=== PATIENT | female | born 1980 | race Two or more races ===

== ENCOUNTER 2016-12-15 07:50 | Emergency (ER) | payer OTHER ==
[2016-12-15 07:55] VITALS: TEMP 98.3; BMI 34.7
[2016-12-15] MEDS ORDERED: KETOROLAC TROMETHAMINE 30 MG/1 ML VIAL IVPUSH ONE (08:13)
[2016-12-15] MEDS ORDERED: KETOROLAC TROMETHAMINE 30 MG/1 ML VIAL ONE (08:16)
[2016-12-15 08:33] LABS: BASOPHIL 0.4 % (0-2.0); EOSINOPHIL 2.8 % (0-4.5); MCH 24.5 pg (25.7-33.7); MCHC 32.3 g/dl (32.0-36.0); MEAN CELL VOLUME 75.7 fl (80-96); MEAN PLT VOLUME 8.6 fl (7.5-11.1); NEUTROPHILS 56.6 % (42.8-82.8); PLATELET COUNT 202 K/MM3 (134-434); RDW 19.6 % (11.6-15.6); WHITE BLOOD COUNT 5.9 K/mm3 (4.0-10.0)
[2016-12-15 08:52] LABS: CALCIUM 8.3 mg/dL (8.5-10.1); COCKROFT - GAULT 151.1045; CREATININE 0.8 mg/dL (0.55-1.02)
--- NOTE | 2016-12-15 08:57 | PDOC ---
History of Present Illness - General Chief Complaint: Pain Stated Complaint: VAGINAL BLEEDING Time Seen by Provider: 12/15/16 08:04 History Source: Patient Exam Limitations: No Limitations - History of Present Illness Initial Comments: 12/15/16 08:57 CHIEF COMPLAINT: Vaginal bleeding HISTORY OF PRESENT ILLNESS: This is a 36 year old female with a history of NIDDM and uterine polyp surgery at [facility] in September of this year who presents complaining of pelvic pain and heavy vaginal bleeding (>10 pads per day ) for four days. V/s on arrival are notable for pulse of 91. chief drafter is Dr. Jeong. REVIEW OF SYSTEMS: GENERAL/CONSTITUTIONAL: No fever or chills. No weakness. No weight change. HEAD, EYES, EARS, NOSE AND THROAT: No change in vision. No ear pain or discharge. No sore throat. CARDIOVASCULAR: No chest pain or palpitations. RESPIRATORY: No cough, wheezing, or shortness of breath. GASTROINTESTINAL: No nausea, vomiting, diarrhea or constipation. GENITOURINARY: See HPI. MUSCULOSKELETAL: No joint or muscle swelling or pain. No neck or back pain. SKIN: No rash or easy bruising. NEUROLOGIC: No headache, vertigo, loss of consciousness, or loss of sensation. PSYCHIATRIC: No depression or anxiety. ENDOCRINE: No increased thirst. No abnormal weight change. HEMATOLOGIC/LYMPHATIC: No anemia, easy bleeding, or history of blood clots. ALLERGIC/IMMUNOLOGIC: No hives or skin allergy. No latex allergy. PHYSICAL EXAM: GENERAL: The patient is awake, alert, and fully oriented, in no acute distress. HEAD: Normal with no signs of trauma. ENT: Pupils equal, round and reactive to light, extraocular movements intact, sclera anicteric, conjunctiva clear. Neck supple. LUNGS: Clear to auscultation bilaterally. Normal excursion. No respiratory distress or use of accessory muscles. CV: RRR, S1/S2, no MRG. Cap refill < 2 sec. ABDOMEN: Soft, non-distended, non-tender. EXTREMITIES: Normal range of motion, no edema. NEUROLOGICAL: Normal speech, normal gait. CN II-XII grossly intact. PSYCH: Normal mood, normal affect. SKIN: Warm, dry, normal turgor, no rashes or lesions noted. GRAIN SHOVELER: Normal external exam. Moderate blood in vaginal vault. No CMT, bilateral adnexal tenderness L>R. Past History - Past Medical History Allergies/Adverse Reactions: Allergies Allergy/AdvReac Type Severity Reaction Status Date / Time No Known Allergies Allergy Verified 12/15/16 07:52 Home Medications: Ambulatory Orders Ibuprofen [Motrin -] 600 mg PO TID #90 tablet 07/21/16 Metformin HCl [Metformin HCl ER] 500 mg PO BID 07/21/16 Ibuprofen [Motrin -] 600 mg PO QID PRN #30 tablet 12/15/16 Diabetes: Yes - Reproductive History (#): 0 Para: 0 Therapeutic (s) & number: No Spontaneous : 0 - Immunization History Immunization Up to Date: Yes - Psycho/Social/Smoking Cessation Hx Anxiety: No Suicidal Ideation: No Smoking History: Never smoked Have you smoked in the past 12 months: No Information on smoking cessation initiated: No Hx Alcohol Use: No Drug/Substance Use Hx: No Substance Use Type: None *Physical Exam - Vital Signs Last Vital Signs Temp Pulse Resp BP Pulse Ox 98.3 F 91 H 18 120/92 100 12/15/16 07:53 12/15/16 07:53 12/15/16 07:53 12/15/16 07:53 12/15/16 07:53 ED Treatment Course - LABORATORY CBC & Chemistry Diagram: 12/15/16 08:20 12/15/16 08:20 - ADDITIONAL ORDERS Additional order review: Laboratory Results 12/15/16 12/15/16 08:20 08:20 Sodium 139 Potassium 4.5 Chloride 106 Carbon Dioxide 25 Anion Gap 8 BUN 14 D Creatinine 0.8 Random Glucose 128 H D Calcium 8.3 L Serum , Qual Negative 12/15/16 08:20 RBC 4.20 MCV 75.7 L MCHC 32.3 RDW 19.6 H MPV 8.6 Neutrophils % 56.6 Lymphocytes % 31.8 Monocytes % 8.4 Eosinophils % 2.8 Basophils % 0.4 - RADIOLOGY Radiology Studies Ordered: Category Date Time Status TRANSVAGINAL ULTRASOUND US [US] Stat Ultrasound 12/15/16 08:12 Ordered - Medications Given in the ED: ED Medications Discontinued Medications Generic Name Dose Route Start Last Admin Trade Name Freq PRN Reason Stop Dose Admin Ketorolac Tromethamine 30 mg 12/15/16 08:13 12/15/16 08:54 Toradol Injection - IVPUSH 12/15/16 08:14 30 mg ONCE ONE Administration Medical Decision Making - Medical Decision Making 12/15/16 09:22 A/P: 36 year old female with pelvic pain and dysfunctional uterine bleeding. 1. Labs including CBC, serum test 2. Transvaginal u/s 3. Toradol 30mg IVP for pain -Hgb 10.3, above baseline -Serum negative 12/15/16 10:[address] Dallas who suggests that I discuss the case with on-call ob/ unloader operator. Dr. Gallegos called. 12/15/16 10:[address] Gallegos- recommends outpatient followup. *DC/Admit/Observation/Transfer Diagnosis at time of Disposition: Dysfunctional uterine bleeding - Discharge Dispostion Admit: No - Prescriptions Prescriptions: Ibuprofen [Motrin -] 600 mg PO QID PRN #30 tablet PRN Reason: Pain - Referrals Referrals: Vishnu Dallas MD [Staff Physician] - - Patient Instructions Printed Discharge Instructions: DI for Vaginal Bleeding Additional Instructions: -Rest and stay well-hydrated -Take ibuprofen as prescribed for pain -Follow up with Dr. Dallas on Sunday - he is aware of your visit here -Return for dizziness/lightheadedness, soaking more than one pad per hour, or any other concerning symptoms - Post Discharge Activity Work/School Note: Back to Work
[2016-12-15 10:38] VITALS: BP 120/56; PULSE 83
== END 2016-12-15 10:38 | disposition home or self-care (01) ==
LOC: JER 07:50
PROC: 3E0333Z Introduction of Anti-inflammatory into Peripheral Vein, Percutaneous Approach (ICD-10-PCS; principal; 2016-12-15)
DX: N93.8 Other specified abnormal uterine and vaginal bleeding (principal); E11.9 Type 2 diabetes mellitus without complications; Z79.84 Long term (current) use of oral hypoglycemic drugs
CPT/HCPCS: 36415; 76830-TC; 80048; 84703; 85025; 96374; 99283-25

== ENCOUNTER 2016-12-30 23:09 | Emergency (ER) | payer OTHER ==
--- NOTE | 2016-12-30 23:56 | PDOC ---
History of Present Illness - General History Source: Patient, Old Records Exam Limitations: No Limitations - History of Present Illness Initial Comments: 12/31/16 00:33 The patient is a 36 year old female, with a significant past medical history of diabetes, who presents to the emergency department with vaginal bleeding and abdominal pain and vaginal bleeding for the past 3 months. She states that she had a uterine fibroid removed in late September 2016 and since has been having these symptoms. She describes her vaginal bleeding as a constant spotting. She describes her pain as a cramping sensation, ranging from mild to moderate, with radiation to the lower back, mostly localized on the left side. She denies any modifying factors. She reports that she has been taking Ibuprofen 800 mg with minimal relief of her symptoms. The patient was last in this ED on 12/08/16 for heavy vaginal bleeding and abdominal pain, at the time she got an ultrasound, which showed a slightly enlarged uterus, otherwise normal pelvic exam. She had since followed up with a physician at her OB/GYNs office who told her she may have Adenomyosis and prescribed control, which she has been compliant in taking. She states that the abdominal pain has exacerbated over the last couple of days, causing her to go to go to [facility], where she was given Morphine and blood work was performed. At the time her hemoglobin was at 7 but was not transfused. Instead was told to follow up with her ARTIST CONSULTANT, which she has an appointment to see in 2 days. She came today to the ED because the pain is worse and she is getting fatigued when she walk. The patient denies chest pain, shortness of breath, headache and dizziness. Denies fever, chills, nausea, vomit, diarrhea and constipation. Allergies: None Past surgical history: Uterine fibroid removal Social history: No alcoholm tobacco or drug use reported ARTIST CONSULTANT - Dr. Jeong <Albert Waggoner - Last Filed: 12/31/16 00:42> <De Perdue - Last Filed: 12/31/16 02:08> - General Stated Complaint: VAGINAL PAIN Time Seen by Provider: 12/30/16 23:32 Past History <Albert Waggoner - Last Filed: 12/31/16 00:42> - Past Medical History Diabetes: Yes - Reproductive History (#): 0 Para: 0 Therapeutic (s) & number: No Spontaneous : 0 - Immunization History Immunization Up to Date: Yes - Psycho/Social/Smoking Cessation Hx Anxiety: No Suicidal Ideation: No Smoking History: Never smoked Have you smoked in the past 12 months: No Hx Alcohol Use: No Drug/Substance Use Hx: No Substance Use Type: None <BrantzacharyDe - Last Filed: 12/31/16 02:08> - Past Medical History Allergies/Adverse Reactions: Allergies Allergy/AdvReac Type Severity Reaction Status Date / Time No Known Allergies Allergy Verified 12/31/16 00:14 Home Medications: Ambulatory Orders Metformin HCl [Metformin HCl ER] 500 mg PO BID 07/21/16 Ibuprofen [Motrin -] 600 mg PO QID PRN #30 tablet 12/15/16 Doxycycline Monohydrate [Monodox] 100 mg PO Q12H #20 capsule 12/31/16 Oxycodone HCl/Acetaminophen [Percocet 5-325 mg Tablet] 1 - 2 tab PO Q6H PRN #10 tab MDD 8 12/31/16 Review of Systems - Review of Systems Constitutional: No: Chills, Fever Respiratory: Yes: SOB with Exertion. No: Cough Cardiac (ROS): No: Chest Pain, Syncope ABD/GI: No: Diarrhea, Vomiting : Yes: See HPI All Other Systems: Reviewed and Negative <De Perdue - Last Filed: 12/31/16 02:08> *Physical Exam - Vital Signs Last Vital Signs Temp Pulse Resp BP Pulse Ox 98.4 F 89 17 123/86 98 12/31/16 00:11 12/31/16 00:11 12/31/16 00:11 12/31/16 00:11 12/31/16 00:11 - Physical Exam Comments: 12/31/16 00:34 GENERAL: The patient is awake, alert, and fully oriented, in no acute distress. HEAD: Normal with no signs of trauma. EYES: (+) Pale conjunctiva. Pupils equal, round and reactive to light, extraocular movements intact, sclera anicteric ENT: Ears normal, nares patent, oropharynx clear without exudates. Moist mucous membranes. NECK: Normal range of motion, supple without lymphadenopathy, JVD, or masses. LUNGS: Breath sounds equal, clear to auscultation bilaterally. No wheeze/ crackles. HEART: Regular rate and rhythm, normal S1 and S2 without murmur or rub. ABDOMEN: Soft/nontender/nondistended. BS wnl. No guarding or rebound. No palpable masses. No hepatosplenomegaly. EXTREMITIES: Normal range of motion, no edema. No clubbing or cyanosis. No cords , erythema, or tenderness. NEUROLOGICAL: Cranial nerves II through XII grossly intact. Normal speech, normal gait. PSYCH: Normal mood, normal affect. SKIN: Warm, Dry, normal turgor, no rashes or lesions noted. PELVIC EXAM: (+) CMT, no adnexal masses, increased discomfort on bilateral adnexal, no excessive bleeding <Albert Waggoner - Last Filed: 12/31/16 00:42> ED Treatment Course - LABORATORY CBC & Chemistry Diagram: 12/31/16 00:30 12/31/16 00:30 <Albert Waggoner - Last Filed: 12/31/16 00:42> - LABORATORY CBC & Chemistry Diagram: 12/31/16 00:30 12/31/16 00:30 <De Perdue - Last Filed: 12/31/16 02:08> Medical Decision Making - Medical Decision Making 12/31/16 00:36 A portion of this note was documented by scribe services under my direction. I have reviewed the details of the note, within reason, and agree with the documentation with the following case summary and management plan written by me. 36-year-old female with history of fibroids and possible recently diagnosed adenomyosis, status post myomectomy in September complicated by persistent pelvic pain and bleeding since then, presents again to the emergency department for persistent pelvic pain and bleeding. Patient was last seen here on 12/15 and was noted to have a hemoglobin of 10 and an ultrasound notable for fibroids but no other acute pathology. She saw her ARTIST CONSULTANT after that visit, was started on OCP for presumed adenomyosis but without benefit to her pain or bleeding. Over the last few days her pain has worsened, relieved only for one to 2 hours with high- dose ibuprofen, and so she presented to the [place] emergency department yesterday, was told her hemoglobin was 7 and was discharged on morphine. She presents now for continued complaints. Vital signs normal. Pale conjunctiva. Positive CMT on pelvic exam, no palpable adnexal masses, no active bleeding but there is clear/yellow discharge 36-year-old female with persistent pelvic pain and bleeding. Presentation does seem consistent with PID given her tenderness, question underlying adenomyosis explaining the persistent bleeding. Concerning that she reports a hemoglobin of 7 with associated symptoms of fatigue/dyspnea on exertion, no chest pain or syncope. Unlikely that she is . Check labs including urinalysis, GC/chlamydia cultures Will treat empirically for PID with ceftriaxone and azithromycin Recheck pelvic ultrasound Pain control, IV fluids Possible transfusion pending hemoglobin level Reassess 12/31/16 01:24 Hemoglobin 8.4, slightly below her baseline of 9 and her last level of 10.4. Remaining labs are within normal limits, including urinalysis. GC and chlamydia cultures sent, treated empirically with antibiotics. Currently at ultrasound, will follow up results and dispo accordingly. Would not proceed with transfusion given the hemoglobin level today and the chronicity of her anemia. 12/31/16 02:00 Ultrasound shows no acute pathology, no fibroids noted and ovaries are within normal limits with normal flow. Pain improved after Toradol, received antibiotics, agrees with discharge plan on antibiotics empirically for PID, will follow-up with her PATIENT CARE MANAGER, understands return criteria. <De Perdue - Last Filed: 12/31/16 02:08> *DC/Admit/Observation/Transfer - Attestations Scribe Attestion: 12/31/16 00:34 Documentation prepared by Albert Waggoner, acting as medical technologist microbiology for De Perdue MD <Albert Waggoner - Last Filed: 12/31/16 00:42> <De Perdue - Last Filed: 12/31/16 02:08> Diagnosis at time of Disposition: Dysfunctional uterine bleeding, Pelvic pain - Discharge Dispostion Disposition: HOME Condition at time of disposition: Improved - Prescriptions Prescriptions: Doxycycline Monohydrate [Monodox] 100 mg PO Q12H #20 capsule Oxycodone HCl/Acetaminophen [Percocet 5-325 mg Tablet] 1 - 2 tab PO Q6H PRN #10 tab MDD 8 PRN Reason: Pain - Referrals Referrals: Vishnu Dallas MD [Staff Physician] - - Patient Instructions Printed Discharge Instructions: DI for Pelvic Inflammatory Disease Additional Instructions: Activity as tolerated. Stay hydrated. Tylenol 1000 mg every 8 hours and/or ibuprofen 600 mg every 8 hours as needed for moderate pain, Percocet as prescribed as needed for severe pain. Blood tests, a urine test, and an ultrasound of the pelvis showed no acute abnormalities other than anemia. Because of your constant pain and based on your exam, we are treating you for a presumed pelvic infection. You were given two antibiotics in the ER, and should take Doxycycline as prescribed. The culture results will be available in 3-5 days. Continue your medications as previously prescribed by your physician. You should follow up with your PATIENT CARE MANAGER as soon as possible regarding today's emergency department visit. Return to the emergency department for any new or concerning symptoms, particularly persistent or intolerable pain, fever/chills, shortness of breath/ chest pain/passing out, heavy bleeding.
[2016-12-31 00:14] VITALS: BP 123/86; PULSE 89; TEMP 98.4; BMI 33.9
[2016-12-31] MEDS ORDERED: KETOROLAC TROMETHAMINE 30 MG/1 ML VIAL IVPUSH ONE (00:16)
[2016-12-31] MEDS ORDERED: AZITHROMYCIN 1 GM PACKET PO ONE (00:17)
[2016-12-31] MEDS ORDERED: SODIUM CHLORIDE 500 ML IV ONE (00:25)
[2016-12-31] MEDS ORDERED: AZITHROMYCIN 250 MG TABLET (FP) ONE (00:34)
[2016-12-31] MEDS ORDERED: KETOROLAC TROMETHAMINE 30 MG/1 ML VIAL ONE (00:34)
[2016-12-31] MEDS ORDERED: cefTRIAXone SODIUM 1 GM VIAL ONE (00:34)
[2016-12-31 00:42] LABS: BASOPHIL 0.2 % (0-2.0); EOSINOPHIL 3.8 % (0-4.5); MCH 22.8 pg (25.7-33.7); MCHC 30.9 g/dl (32.0-36.0); MEAN CELL VOLUME 73.9 fl (80-96); MEAN PLT VOLUME 8.1 fl (7.5-11.1); NEUTROPHILS 65.4 % (42.8-82.8); PLATELET COUNT 272 K/MM3 (134-434); RDW 19.1 % (11.6-15.6); WHITE BLOOD COUNT 8.2 K/mm3 (4.0-10.0)
[2016-12-31 00:56] LABS: URINE APPEARANCE CLEAR; URINE BILIRUBIN NEGATIVE (NEGATIVE); URINE COLOR STRAW; URINE GLUCOSE (UA) NEGATIVE (NEGATIVE); URINE KETONE NEGATIVE (NEGATIVE); URINE LEUK ESTERASE NEGATIVE (NEGATIVE); URINE NITRITE NEGATIVE (NEGATIVE); URINE PROTEIN NEGATIVE (NEGATIVE); URINE UROBILINOGEN NEGATIVE E.U./dl (0.2-1.0)
[2016-12-31 00:57] LABS: URINE BLOOD 2+ (NEGATIVE)
[2016-12-31 00:58] LABS: INR 1.01 (0.82-1.09); PROTHROMBIN TIME (PATIENT) 11.1 SEC (9.98-11.88); URINE RBC 2 /hpf (0-3); URINE WBC 1 /hpf (3-5)
[2016-12-31 01:07] LABS: ALBUMIN 3.5 g/dl (3.4-5.0); ANION GAP 9 (8-16); BILIRUBIN,TOTAL 0.5 mg/dL (0.2-1.0); CALCIUM 8.7 mg/dL (8.5-10.1); CO2 25 mmol/L (21-32); CREATININE 0.9 mg/dL (0.55-1.02); GLUCOSE,RANDOM 126 mg/dL (74-106); SGOT/AST 10 U/L (15-37); SGPT/ALT 17 U/L (12-78)
[2016-12-31 01:08] LABS: ALK PHOS 115 U/L (45-117); TOT PROT 7.5 g/dl (6.4-8.2)
[2016-12-31 09:58] LABS: ANISOCYTOSIS 1+; HYPOCHROMIA 2+; MICROCYTOSIS FEW; POLYCHROMASIA 1+; TEAR DROP CELLS 1+
== END 2016-12-31 02:16 | disposition home or self-care (01) ==
LOC: JER 23:09 → SUPCPDRO 23:09 → JER 12-31 02:16
PROC: 3E02329 Introduction of Other Anti-infective into Muscle, Percutaneous Approach (ICD-10-PCS; principal; 2016-12-30)
PROC: 3E0233Z Introduction of Anti-inflammatory into Muscle, Percutaneous Approach (ICD-10-PCS; 2016-12-30)
DX: R10.2 Pelvic and perineal pain (principal); N93.8 Other specified abnormal uterine and vaginal bleeding; Y83.8 Other surgical procedures as the cause of abnormal reaction of the patient, or of later complication, without mention of misadventure at the time of the procedure; Y76.8 Miscellaneous obstetric and gynecological devices associated with adverse incidents, not elsewhere classified
CPT/HCPCS: 36415; 76830-TC; 80053; 81003; 81015; 84703; 85025; 85610; 86850; 86900; 86901; 87491; 87591; 99281-25

== ENCOUNTER → 2017-01-07 | Emergency (ER) | payer OTHER ==
[2017-01-07 11:52] VITALS: BMI 33.9
[2017-01-07 13:04] LABS: MCH 22.8 pg (25.7-33.7); MCHC 30.9 g/dl (32.0-36.0); MEAN CELL VOLUME 73.9 fl (80-96); MEAN PLT VOLUME 8.2 fl (7.5-11.1); PLATELET COUNT 329 K/MM3 (134-434); RDW 20.2 % (11.6-15.6)
[2017-01-07 13:28] LABS: ALBUMIN 3.8 g/dl (3.4-5.0); ALK PHOS 129 U/L (45-117); ANION GAP 11 (8-16); BILIRUBIN,TOTAL 0.4 mg/dL (0.2-1.0); CALCIUM 9.9 mg/dL (8.5-10.1); CO2 22 mmol/L (21-32); CREATININE 0.9 mg/dL (0.55-1.02); GLUCOSE,RANDOM 127 mg/dL (74-106); SGOT/AST 101 U/L (15-37); SGPT/ALT 85 U/L (12-78); TOT PROT 8.1 g/dl (6.4-8.2)
[2017-01-07 13:30] LABS: INR 2.01 (0.82-1.09); PROTHROMBIN TIME (PATIENT) 22.4 SEC (9.98-11.88)
[2017-01-07 13:37] LABS: PLATELET ESTIMATE ADEQUATE (NORMAL)
[2017-01-07 13:38] LABS: ANISOCYTOSIS 1+; HYPOCHROMIA 1+
[2017-01-07 13:38] LABS: METHEMOGLOBIN 0.3 % (0.4-1.5)
[2017-01-07 13:39] LABS: ARTERIAL BLD GAS O2 SATURATION 96.7 % (90-98.9); ARTERIAL BLOOD GAS BASE EXCESS -2.3 meq/l (-2-2); ARTERIAL BLOOD GAS HCO3 20.4 meq/L (22-26); ARTERIAL BLOOD GAS PO2 79.7 mmHg (80-100); ARTERIAL BLOOD GAS pH 7.47 (7.35-7.45)
[2017-01-07 13:40] LABS: ALLENS TEST POSITIVE; ART PUNCT SITE RIGHT RADIAL; LPM/O2% 21%; PT. ON O2? NO; TYPE OF O2 R/A
--- NOTE | 2017-01-07 14:17 | PDOC ---
History of Present Illness - General History Source: Patient Exam Limitations: No Limitations - History of Present Illness Initial Comments: 01/07/17 14:40 The patient is a 36 year old female with a significant past medical history of diabetes, and anemia, recently diagnosed with PE at [facility] (on Xarelto) , brought by ambulance to the Emergency Department with shortness of breath. The patient reports that on 09/26 she had uterine fibroid removal and since has had vaginal spotting. She admits that she then was put back on an oral contraceptive to help the spotting, which caused a PE. As per records brought with the patient, she was diagnosed with a PE in [facility] on 01/02 and was admitted until 01/04. She admits that she is compliant with her Xarelto medication, but has not been taking her Metformin as she reports that her blood sugar has been low. She reports that she is currently feeling very weak, and fatigued, as well as short of breath, alleviated by lying down. She reports that the shortness of breath is not better or worse from when she was in the hospital for her PE. She also reports epigastric pain. She states that she started her menstrual cycle on Wednesday 01/03 which has been heavier than usual which she admits may be due to stopping the oral control and/or new medications. She admits that she had her first child 6 months ago. The patient is scheduled to see her Junior Administrative Assistant on Wednesday 01/10, and reports that her Junior Administrative Assistant states she may need a hysterectomy. She reports that while admitted at [facility] she had an ultrasound of the left leg but not the right. The patient denies dysuria, urinary frequency, and urgency. Patient denies nausea, vomiting, and diarrhea. Patient denies fever, cough, and chills. Patient denies neck pain, or back pain. Patient denies chest pain, palpitations , and diaphoresis. Junior Administrative Assistant: Dr. [facility] Hx: uterine fibroid removal <Corrie Noriega - Last Filed: 01/07/17 16:19> <Chad Broussard - Last Filed: 01/07/17 16:47> - General Chief Complaint: Shortness of Breath Stated Complaint: +P.E / SOB Time Seen by Provider: 01/07/17 12:06 Past History <Corrie Noriega - Last Filed: 01/07/17 16:19> - Past Medical History Cardiac Disorders: Yes (P.E) Diabetes: Yes Other medical history: LLE DVT - Reproductive History (#): 0 Para: 0 Therapeutic (s) & number: No Spontaneous : 0 - Immunization History Immunization Up to Date: Yes - Psycho/Social/Smoking Cessation Hx Anxiety: No Suicidal Ideation: No Smoking History: Never smoked Have you smoked in the past 12 months: No Information on smoking cessation initiated: No Hx Alcohol Use: No Drug/Substance Use Hx: No Substance Use Type: None <BoboChad - Last Filed: 01/07/17 16:47> - Past Medical History Allergies/Adverse Reactions: Allergies Allergy/AdvReac Type Severity Reaction Status Date / Time No Known Allergies Allergy Verified 01/07/17 11:45 Home Medications: Ambulatory Orders Metformin HCl 500 mg PO BID 01/07/17 Review of Systems - Review of Systems Able to Perform ROS?: Yes Comments:: 01/07/17 14:40 GENERAL/CONSTITUTIONAL: + weakness and fatigue. No fever or chills. HEAD, EYES, EARS, NOSE AND THROAT: No change in vision. No ear pain or discharge. No sore throat. CARDIOVASCULAR: No chest pain. RESPIRATORY: + shortness of breath. No cough, wheezing, or hemoptysis. GASTROINTESTINAL: + epigastric pain. No nausea, vomiting, diarrhea or constipation. GENITOURINARY: + vaginal bleeding. No dysuria, frequency, or change in urination. MUSCULOSKELETAL: No joint or muscle swelling or pain. No neck or back pain. SKIN: No rash NEUROLOGIC: No headache, vertigo, loss of consciousness, or change in strength/ sensation. ENDOCRINE: No increased thirst. No abnormal weight change. HEMATOLOGIC/LYMPHATIC: No anemia, easy bleeding, or history of blood clots. ALLERGIC/IMMUNOLOGIC: No hives or skin allergy. <Corrie Noriega - Last Filed: 01/07/17 16:19> *Physical Exam - Vital Signs Last Vital Signs Temp Pulse Resp BP Pulse Ox 98.0 F 108 H 24 119/80 98 01/07/17 11:48 01/07/17 13:07 01/07/17 13:07 01/07/17 13:07 01/07/17 13:20 - Physical Exam Comments: 01/07/17 14:42 GENERAL: Appears fatigued. Awake, alert, and fully oriented, in no acute distress HEAD: No signs of trauma EYES: Conjuctiva pale. PERRLA, EOMI, sclera anicteric ENT: Auricles normal inspection, hearing grossly normal, nares patent, oropharynx clear without exudates. Moist mucosa NECK: Normal ROM, supple, no lymphadenopathy, JVD, or masses LUNGS: Breath sounds equal, clear to auscultation bilaterally. No wheezes, and no crackles HEART: Regular rate and rhythm, normal S1 and S2, no murmurs, rubs or gallops ABDOMEN: Soft, nontender, normoactive bowel sounds. No guarding, no rebound. No masses EXTREMITIES: Normal range of motion, no edema. No clubbing or cyanosis. No cords, erythema, or tenderness NEUROLOGICAL: Cranial nerves II through XII grossly intact. Normal speech, normal gait SKIN: Warm, Dry, normal turgor, no rashes or lesions noted. PELVIC deferred. <Corrie Noriega - Last Filed: 01/07/17 16:19> - Vital Signs Last Vital Signs Temp Pulse Resp BP Pulse Ox 98.0 F 108 H 24 119/80 98 01/07/17 11:48 01/07/17 13:07 01/07/17 13:07 01/07/17 13:07 01/07/17 13:20 <Chad Broussard - Last Filed: 01/07/17 16:47> ED Treatment Course - LABORATORY CBC & Chemistry Diagram: 01/07/17 12:56 01/07/17 12:56 - ADDITIONAL ORDERS Additional order review: Laboratory Results 01/07/17 01/07/17 01/07/17 13:20 13:20 13:02 INR Puncture Site Right radial ABG pH 7.47 H ABG pCO2 at Pt Temp 28.6 L ABG pO2 at Pt Temp 79.7 L ABG HCO3 20.4 L ABG O2 Sat (Measured) 96.7 ABG O2 Content 11.7 L ABG Base Excess -2.3 L Lon Test Positive Carboxyhemoglobin 2.6 H Methemoglobin 0.3 L O2 Delivery Device R/a Oxygen Flow Rate 21% Sodium Potassium Chloride Carbon Dioxide Anion Gap BUN Creatinine Creat Clearance w eGFR Random Glucose Calcium Total Bilirubin AST ALT Alkaline Phosphatase Total Protein Albumin Serum , Qual Blood Type A POSITIVE Antibody Screen Negative 01/07/17 01/07/17 01/07/17 12:56 12:56 12:56 INR 2.01 H D Puncture Site ABG pH ABG pCO2 at Pt Temp ABG pO2 at Pt Temp ABG HCO3 ABG O2 Sat (Measured) ABG O2 Content ABG Base Excess Lon Test Carboxyhemoglobin Methemoglobin O2 Delivery Device Oxygen Flow Rate Sodium 137 Potassium 4.6 Chloride 104 Carbon Dioxide 22 Anion Gap 11 BUN 14 Creatinine 0.9 Creat Clearance w eGFR > 60 Random Glucose 127 H Calcium 9.9 Total Bilirubin 0.4 AST 101 H D ALT 85 H D Alkaline Phosphatase 129 H Total Protein 8.1 Albumin 3.8 Serum , Qual Negative Blood Type Antibody Screen 01/07/17 12:56 RBC 3.76 MCV 73.9 L MCHC 30.9 L RDW 20.2 H MPV 8.2 Neutrophils % 80.0 D Lymphocytes % 12.0 D Monocytes % 5.0 Eosinophils % 1.0 Basophils % 0.0 - RADIOLOGY Radiograph Interpretation: 01/07/17 14:55 Chest XRay As reviewed by Dr. Sourav Rosado IMPRESSION: No acute pathology. No significant change. 01/07/17 16:19 Bilateral Leg Ultrasound As reviewed by Dr. Josh Phelan IMPRESSION: No DVT is identified involving either leg. <Corrie Noriega - Last Filed: 01/07/17 16:19> - LABORATORY CBC & Chemistry Diagram: 01/07/17 12:56 01/07/17 12:56 - ADDITIONAL ORDERS Additional order review: Laboratory Results 01/07/17 01/07/17 01/07/17 13:20 13:20 12:56 INR Puncture Site Right radial ABG pH 7.47 H ABG pCO2 at Pt Temp 28.6 L ABG pO2 at Pt Temp 79.7 L ABG HCO3 20.4 L ABG O2 Sat (Measured) 96.7 ABG O2 Content 11.7 L ABG Base Excess -2.3 L Lon Test Positive Carboxyhemoglobin 2.6 H Methemoglobin 0.3 L O2 Delivery Device R/a Oxygen Flow Rate 21% Sodium 137 Potassium 4.6 Chloride 104 Carbon Dioxide 22 Anion Gap 11 BUN 14 Creatinine 0.9 Creat Clearance w eGFR > 60 Random Glucose 127 H Calcium 9.9 Total Bilirubin 0.4 AST 101 H D ALT 85 H D Alkaline Phosphatase 129 H Total Protein 8.1 Albumin 3.8 Serum , Qual 01/07/17 01/07/17 12:56 12:56 INR 2.01 H D Puncture Site ABG pH ABG pCO2 at Pt Temp ABG pO2 at Pt Temp ABG HCO3 ABG O2 Sat (Measured) ABG O2 Content ABG Base Excess Lon Test Carboxyhemoglobin Methemoglobin O2 Delivery Device Oxygen Flow Rate Sodium Potassium Chloride Carbon Dioxide Anion Gap BUN Creatinine Creat Clearance w eGFR Random Glucose Calcium Total Bilirubin AST ALT Alkaline Phosphatase Total Protein Albumin Serum , Qual Negative 01/07/17 12:56 RBC 3.76 MCV 73.9 L MCHC 30.9 L RDW 20.2 H MPV 8.2 Neutrophils % 80.0 D Lymphocytes % 12.0 D Monocytes % 5.0 Eosinophils % 1.0 Basophils % 0.0 - RADIOLOGY Radiology Studies Ordered: Category Date Time Status CXRPORT [CHEST X-RAY PORTABLE*] [RAD] Stat Radiology 01/07/17 12:36 Completed <Chad Broussard - Last Filed: 01/07/17 16:47> *DC/Admit/Observation/Transfer - Attestations Scribe Attestion: 01/07/17 14:44 Documentation prepared by Corrie Noriega, acting as manager medical for Chad Broussard DO. <Corrie Noriega - Last Filed: 01/07/17 16:19> - Discharge Dispostion Admit: No - Attestations Physician Attestion: 01/07/17 14:17 I, Dr. Chad Broussard, attest that this document has been prepared under my direction and personally reviewed by me in its entirety. I further attest, that it accurately reflects all work, treatment, procedures and medical decision -making performed by me. <Chad Broussard - Last Filed: 01/07/17 16:47> Diagnosis at time of Disposition: Dysfunctional uterine bleeding, Metrorrhagia Pulmonary embolism Qualifiers: Chronicity: unspecified Acute cor pulmonale presence: without acute cor pulmonale Uterine leiomyoma Qualifiers: Uterine leiomyoma location: unspecified location Qualified Code(s): D25.9 - Leiomyoma of uterus, unspecified - Discharge Dispostion Disposition: HOME Condition at time of disposition: Good - Patient Instructions Printed Discharge Instructions: DI for Pulmonary Embolism, Anemia: How Food and Vitamins Can Help Additional Instructions: Tanisha- See your ELASTIC ASSEMBLER about what the plan needs to be to stop the bleeding while you are on blood thinners. You do not have any blood clots in your legs. Your Blood Gas shows that you are getting plenty of oxygen in your blood. Continue all of your medicines. Return to us if there are any problems I hope this all resolves for you soon. [employer]- Dr. Chad Broussard
[2017-01-07 17:00] VITALS: TEMP 98.4
[2017-01-07 17:02] VITALS: BP 124/56; PULSE 100
--- NOTE | 2017-01-08 07:26 | EKG ---
Test Reason : Blood Pressure : / mmHG Vent. Rate : 101 BPM Atrial Rate : 101 BPM P-R Int : 132 ms QRS Dur : 070 ms QT Int : 332 ms P-R-T Axes : 051 049 044 degrees QTc Int : 430 ms SINUS TACHYCARDIA OTHERWISE NORMAL ECG NO PREVIOUS ECGS AVAILABLE Confirmed by SARA ANDREWS MD ([id number]) on 01/08/2017 7:26:17 AM Referred By: ROSHAN Confirmed By:SARA ANDREWS MD
== END | disposition home or self-care (01) ==
LOC: JER 11:44
DX: N92.1 Excessive and frequent menstruation with irregular cycle (principal); D25.9 Leiomyoma of uterus, unspecified; I26.99 Other pulmonary embolism without acute cor pulmonale; Z79.01 Long term (current) use of anticoagulants
CPT/HCPCS: 36415; 36600; 71010-TC; 80053; 81003; 82375; 82803; 83050; 84703; 85025; 85610; 86850; 86900; 86901; 93005; 93010; 93970-TC; 99285-25

== ENCOUNTER 2018-07-26 23:52 | Emergency (ER) | payer OTHER ==
[2018-07-27 00:43] VITALS: TEMP 98.2; BMI 34.2
[2018-07-27] MEDS ORDERED: ACETAMINOPHEN 325 MG TABLET (FP) PO ONE (00:56)
[2018-07-27 01:15] LABS: BASO % 0.4 % (0-2.0); EOS % 2.9 % (0-4.5); HEMATOCRIT 35.9 % (32.4-45.2); HEMOGLOBIN 11.9 GM/dL (10.7-15.3); LYMPH % 25.2 % (8-40); MCH 24.5 pg (25.7-33.7); MEAN CELL VOLUME 74.4 fl (80-96); MONO % 9.7 % (3.8-10.2); NEUT % 61.8 % (42.8-82.8); PLATELET COUNT 212 K/MM3 (134-434); RBC 4.83 M/mm3 (3.60-5.2)
--- NOTE | 2018-07-27 01:25 | PDOC ---
History of Present Illness - General Chief Complaint: Pain, Acute Stated Complaint: ABD PAIN Time Seen by Provider: 07/27/18 00:34 History Source: Patient Exam Limitations: Language Barrier Past History - Past Medical History Allergies/Adverse Reactions: Allergies Allergy/AdvReac Type Severity Reaction Status Date / Time No Known Allergies Allergy Verified 07/27/18 00:34 Home Medications: Ambulatory Orders metFORMIN HCL [Metformin HCl] 500 mg PO BID 01/07/17 Cardiac Disorders: Yes (P.E) Diabetes: Yes - Reproductive History (#): 0 Para: 0 Therapeutic (s) & number: No Spontaneous : 0 - Immunization History Immunization Up to Date: Yes - Suicide/Smoking/Psychosocial Hx Smoking History: Never smoked Have you smoked in the past 12 months: No Information on smoking cessation initiated: No Hx Alcohol Use: No Drug/Substance Use Hx: No Substance Use Type: None *Physical Exam - Vital Signs Last Vital Signs Temp Pulse Resp BP Pulse Ox 98.2 F 78 20 118/69 99 07/27/18 00:34 07/27/18 00:34 07/27/18 00:34 07/27/18 00:34 07/27/18 00:34 - Physical Exam General Appearance: No: Apparent Distress Respiratory/Chest: positive: Lungs Clear, Normal Breath Sounds. negative: Respiratory Distress Cardiovascular: positive: Regular Rhythm, Regular Rate, S1, S2. negative: Murmur Female Pelvic Exam: positive: discharge (clear whitish discharge, no foul odor) , adnexal tenderness (+R adnexal TTP), uterus. negative: CMT, vaginal bleeding Gastrointestinal/Abdominal: positive: Normal Bowel Sounds, Soft. negative: Tender, Distended, Guarding, Rebound Neurologic: positive: Fully Oriented, Alert, Normal Mood/Affect Moderate Sedation - Procedure Monitoring Vital Signs: Procedure Monitoring Vital Signs Temperature 98.2 F 07/27/18 00:34 Pulse Rate 78 07/27/18 00:34 Respiratory Rate 20 07/27/18 00:34 Blood Pressure 118/69 07/27/18 00:34 O2 Sat by Pulse Oximetry (%) 99 07/27/18 00:34 ED Treatment Course - LABORATORY CBC & Chemistry Diagram: 07/27/18 01:04 07/27/18 01:04 - RADIOLOGY Radiology Studies Ordered: Category Date Time Status TRANSVAGINAL US PREG [US] Stat Ultrasound 07/27/18 00:56 Ordered Medical Decision Making - Medical Decision Making 37 y/o F hx of DM, anemia, PE (on Eliquis), endometriosis presents with pelvic cramping x 5 days. Saw her PCP for this pain 5 days ago who did urine test which was negative and did ultrasound with concern for "inflamed ovary"; he prescribed her Hyoscyamine and Ciprofloxacin 500 BID, which she states has not been helping. Mentions having urinary urgency. Has been sexually active with only 1 partner; denies hx of STDs. Has been taking Tylenol with minimal relief of pain. LNMP 04/01 (has irregular periods) Denies fever, chills, sob, cp, n/v/d , vaginal bleeding, unusual vaginal discharge, dysuria. Consider UTI, R ovarian cyst; less suspicious for ovarian torsion or abscess Plan: CBC, BMP, UCG, UA, UCx, pelvic ultrasound 07/27/18 01:18 Labs reviewed and unremarkable Pelvic ultrasound: 5.5 x 5.0 x 4.0 cm complex left ovarian cyst, probably hemorrhagic, advise followup ultrasound in 6 or 10 weeks to assess for resolution. No ovarian torsion. Color flow with appropriate arterial and venous waveforms. No free fluid. 2.3 cm fibroid in uterus. Endometrial stripe complex 19 mm thick. Unremarkable visualized portion of bladder Findings d/w Dr. Clarke - concerned about ovarian torsion Patient currently resting in NAD [facility] advised patient f/u with SOCIAL WORK PROFESSOR tomorrow or at [facility] for further care; states it could be endometrioma vs hemorrhagic cyst D/W Dr. Clarke - recommend transfer to [facility] for further eval Spoke to OB Dr. Guidry at [facility]; patient accepted for ER to ER transfer 07/27/18 04:28 *DC/Admit/Observation/Transfer Diagnosis at time of Disposition: Hemorrhagic cyst of left ovary - Discharge Dispostion Disposition: TRANSFER ACUTE CARE/OTHER HOSP Condition at time of disposition: Stable Decision to Admit order: No - Referrals - Patient Instructions - Post Discharge Activity - Transfer to Acute Care Facility Receiving Facility: [facility]. Accepting Physician:: Dr. Guidry
[2018-07-27 01:45] LABS: ANION GAP 6 MMOL/L (8-16); BLOOD UREA NITROGEN 10 mg/dL (7-18); CALCIUM 8.9 mg/dL (8.5-10.1); CHLORIDE 106 mmol/L (98-107); CO2 25 mmol/L (21-32); CREATININE 0.7 mg/dL (0.55-1.3); GLUCOSE,RANDOM 127 mg/dL (74-106); SODIUM 137 mmol/L (136-145)
[2018-07-27] MEDS ORDERED: ACETAMINOPHEN 325 MG TABLET (FP) ONE (01:48)
[2018-07-27 03:17] LABS: URINE APPEARANCE CLOUDY; URINE BILIRUBIN NEGATIVE (<2.0 mg/dL); URINE COLOR YELLOW; URINE GLUCOSE (UA) NEGATIVE (NEGATIVE); URINE KETONE NEGATIVE (NEGATIVE); URINE LEUK ESTERASE 1+ (NEGATIVE); URINE NITRITE NEGATIVE (NEGATIVE); URINE PROTEIN NEGATIVE (NEGATIVE); URINE UROBILINOGEN NEGATIVE mg/dL (0.2-1.0)
[2018-07-27 03:22] LABS: EPI CELLS MODERATE /HPF (FEW); URINE MUCUS RARE
[2018-07-27 05:15] VITALS: BP 117/68; PULSE 70
== END 2018-07-27 05:24 | disposition short-term general hospital (02) ==
LOC: JER 23:52
DX: N83.202 Unspecified ovarian cyst, left side (principal); Z79.01 Long term (current) use of anticoagulants
CPT/HCPCS: 36415; 76830-TC; 80048; 81003; 81015; 84703; 85025; 87086; 87491; 87591; 99282-25

== ENCOUNTER 2019-03-05 16:48 | Emergency (ER) | payer OTHER ==
[2019-03-05 16:57] VITALS: TEMP 98.3; BMI 34.2
[2019-03-05] MEDS ORDERED: SODIUM CHLORIDE 0.9% 500 ML INFUS.BAG IV ONE (16:57)
[2019-03-05] MEDS ORDERED: KETOROLAC TROMETHAMINE 30 MG/1 ML VIAL IM ONE (16:57)
--- NOTE | 2019-03-05 16:57 | PDOC ---
Rapid Medical Evaluation Time Seen by Provider: 03/05/19 16:53 Medical Evaluation: Allergies Allergy/AdvReac Type Severity Reaction Status Date / Time No Known Allergies Allergy Verified 07/27/18 00:34 03/05/19 16:53 This patient had a brief in-person evaluation in triage CC: left flank pain since that radiates down left leg Patient reports being seen at another hospital for the same last week given antibiotics with no relief of symptoms PE: NAD unlabored breathing + left cva tenderness orders:urine, labs, iv saline, This patient will proceed to the ED for further evaluation Discharge Disposition - Diagnosis Left flank pain - Referrals - Patient Instructions - Post Discharge Activity
--- NOTE | 2019-03-05 19:33 | PDOC ---
History of Present Illness - General Chief Complaint: Pain, Acute Stated Complaint: LOWER/FLANK PAIN, URINARY Time Seen by Provider: 03/05/19 16:53 Past History - Past Medical History Allergies/Adverse Reactions: Allergies Allergy/AdvReac Type Severity Reaction Status Date / Time No Known Allergies Allergy Verified 03/05/19 16:57 Home Medications: Ambulatory Orders metFORMIN HCL [Metformin HCl] 500 mg PO BID 01/07/17 Cardiac Disorders: Yes (P.E ON ELIQUIS) COPD: No Diabetes: Yes Kidney Stones: (KIDNEY INFECTION) - Reproductive History (#): 0 Para: 0 Therapeutic (s) & number: No Spontaneous : 0 - Immunization History Immunization Up to Date: Yes - Suicide/Smoking/Psychosocial Hx Smoking History: Never smoked Have you smoked in the past 12 months: No Information on smoking cessation initiated: No Hx Alcohol Use: No Drug/Substance Use Hx: No Substance Use Type: None *Physical Exam - Vital Signs Last Vital Signs Temp Pulse Resp BP Pulse Ox 98.3 F 85 19 131/66 100 03/05/19 16:55 03/05/19 16:55 03/05/19 16:55 03/05/19 16:55 03/05/19 16:55 Medical Decision Making - Medical Decision Making 38yo F 03/05/19 19:33 *DC/Admit/Observation/Transfer Diagnosis at time of Disposition: Left flank pain - Referrals - Patient Instructions - Post Discharge Activity
--- NOTE | 2019-03-05 19:52 | PDOC ---
History of Present Illness - General Chief Complaint: Pain, Acute Stated Complaint: LOWER/FLANK PAIN, URINARY Time Seen by Provider: 03/05/19 16:53 History Source: Patient Exam Limitations: No Limitations - History of Present Illness Initial Comments: 03/05/19 19:49 38 yo female pmh DM, anemia, PE (on Eliquis), endometriosis presents to the ED for 5 days of lower back pain. Pt states the pain started suddenly without related trauma, never had this pain before, pain is lower back, described as cramping with radiation down the left leg with associated numbness/tingling. Pt went to Urgent Care Sunday, given antibiotics for likely UTI (finished course, does not know name) and has been taking Tylenol for pain without relief. Pt admits to feelings of not finishing voiding after urination, denies incontinence , burning, pain or blood with urination, denies saddle anesthesia, abdominal pain, F/C/N/V, CP, SOB, CANNON, vaginal complaints or changes in bowel or bladder habits Past History - Past Medical History Allergies/Adverse Reactions: Allergies Allergy/AdvReac Type Severity Reaction Status Date / Time No Known Allergies Allergy Verified 03/05/19 16:57 Home Medications: Ambulatory Orders metFORMIN HCL [Metformin HCl] 500 mg PO BID 01/07/17 Apixaban [Eliquis -] 2.5 mg PO BID 03/06/19 Cardiac Disorders: Yes (P.E ON ELIQUIS) COPD: No Diabetes: Yes Kidney Stones: (KIDNEY INFECTION) - Reproductive History (#): 0 Para: 0 Therapeutic (s) & number: No Spontaneous : 0 - Immunization History Immunization Up to Date: Yes - Suicide/Smoking/Psychosocial Hx Smoking History: Never smoked Have you smoked in the past 12 months: No Information on smoking cessation initiated: No Hx Alcohol Use: No Drug/Substance Use Hx: No Substance Use Type: None *Physical Exam - Vital Signs Last Vital Signs Temp Pulse Resp BP Pulse Ox 98.3 F 85 19 131/66 100 03/05/19 16:55 03/05/19 16:55 03/05/19 16:55 03/05/19 16:55 03/05/19 16:55 ED Treatment Course - LABORATORY CBC & Chemistry Diagram: 03/06/19 01:00 03/06/19 01:15 Medical Decision Making - Medical Decision Making 03/05/19 19:59 38 yo female pmh DM, anemia, PE (on Eliquis), endometriosis presents to the ED for 5 days of lower back pain. Pt states the pain started suddenly without related trauma, never had this pain before, pain is lower back, described as cramping with radiation down the left leg with associated numbness/tingling. Pt went to Urgent Care Sunday, given antibiotics for likely UTI (finished course, does not know name) and has been taking Tylenol for pain without relief. Pt admits to feelings of not finishing voiding after urination, denies incontinence , burning, pain or blood with urination, denies saddle anesthesia, abdominal pain, F/C/N/V, CP, SOB, CANNON, vaginal complaints or changes in bowel or bladder habits vitals wnl Pt well appearing, ambulates without difficulty in the ED Neg straight leg raise UA and U culture sent 03/06/19 02:26 APCT no acute findings US shows some free fluid and likely hemorrhagic cyst pelvic exam shows closed OS, no adnexal tenderness or CMT Pt pain likely from ruptured cyst, treat with NSAIDs and dispo to gyn *DC/Admit/Observation/Transfer Diagnosis at time of Disposition: Left flank pain, Ovarian cyst rupture - Discharge Dispostion Disposition: HOME Condition at time of disposition: Stable Decision to Admit order: No - Referrals Referrals: Sunni Oseguera MD [Staff Physician] - - Patient Instructions Printed Discharge Instructions: [facility] Additional Instructions: Please see your Primary Doctor within the next 48 hours and see your DIRECTOR OF IT OPERATIONS doctor as soon as possible. You likely had an ovarian cyst which suptured and caused your pain. Take over the counter NSAID medication for pain relief. Return to the ER for new or concerning symptoms including but not limited to: abdominal pain, high fevers, vaginal discharge, inability to eat or drink. Thank you Print Language: SAO TOMEAN - Post Discharge Activity Forms/Work/School Notes: Back to Work
[2019-03-05] MEDS ORDERED: KETOROLAC TROMETHAMINE 30 MG/1 ML VIAL ONE (20:33)
[2019-03-05 21:10] LABS: PH,URINE 6.5 (5.0-8.0); URINE APPEARANCE CLEAR; URINE BILIRUBIN NEGATIVE (NEGATIVE); URINE COLOR YELLOW; URINE GLUCOSE (UA) 3+ (NEGATIVE); URINE KETONE NEGATIVE (NEGATIVE); URINE LEUK ESTERASE NEGATIVE (NEGATIVE); URINE NITRITE NEGATIVE (NEGATIVE); URINE PROTEIN NEGATIVE (NEGATIVE); URINE UROBILINOGEN 0.2 mg/dL (0.2-1.0)
--- NOTE | 2019-03-05 22:12 | PDOC ---
Documentation entered by Marta Navarrete SCRIBE, acting as scribe for Rochelle Farooq DO. Rochelle Farooq DO: This documentation has been prepared by the jeff, Marta Navarrete SCRIBE, under my direction and personally reviewed by me in its entirety. I confirm that the documentation accurately reflects all work , treatment, procedures, and medical decision making performed by me. Attending Attestation - Resident Resident Name: Morteza Campos - ED Attending Attestation I have performed the following: I have examined & evaluated the patient, The case was reviewed & discussed with the resident, I agree w/resident's findings & plan, Exceptions are as noted - HPI HPI: 03/05/19 20:30 The patient is a 38-year-old female, with a past medical history of DM, anemia, PE (on Eliquis), and endometriosis, who presents to the ED with 5 days of lower back pain with radiation down the left leg. Patient has been taking Tylenol for pain with minimal relief of her symptoms. The patient went to an urgent care on Sunday03/03/19 and received Hyoscyamine and Ciprofloxacin 500 BID for treatment of a UTI. The antibiotics have not helped ease the pain. She denies any recent trauma, incontinence, or any changes in sensation. She denies any dysuria, frequency, hesitancy, or hematuria, but reports urgency. She denies any fevers, chills, nausea, vomiting, diarrhea, or abdominal pain. Denies any chest pain, palpitations, or shortness of breath. Allergies: NKA - Physicial Exam PE: 03/05/19 20:31 Agree with resident exam. - Medical Decision Making 03/05/19 22:09 38-year-old female with bilateral low back pain On reexam patient now exhibits abdominal tenderness CT abdomen and pelvis, renal protocol as well as pelvic ultrasound planned Labs/urinalysis Disposition pending results
[2019-03-06 01:10] LABS: BASO % 0.6 % (0-2.0); EOS % 3.1 % (0-4.5); HEMATOCRIT 33.4 % (32.4-45.2); HEMOGLOBIN 10.7 GM/dL (10.7-15.3); LYMPH % 29.4 % (8-40); MCH 26.1 pg (25.7-33.7); MEAN CELL VOLUME 81.4 fl (80-96); MEAN PLT VOLUME 9.4 fl (7.5-11.1); MONO % 9.5 % (3.8-10.2); NEUT % 57.4 % (42.8-82.8); PLATELET COUNT 212 K/MM3 (134-434); RBC 4.11 M/mm3 (3.60-5.2); RDW 17.8 % (11.6-15.6); WHITE BLOOD COUNT 6.2 K/mm3 (4.0-10.0)
[2019-03-06 01:38] LABS: ALBUMIN 3.3 g/dl (3.4-5.0); BILIRUBIN,TOTAL 0.3 mg/dL (0.2-1); BLOOD UREA NITROGEN 10.8 mg/dL (7-18); CALCIUM 8.8 mg/dL (8.5-10.1); CREATININE 0.8 mg/dL (0.55-1.3); POTASSIUM 4.2 mmol/L (3.5-5.1); TOT PROT 6.7 g/dl (6.4-8.2)
[2019-03-06 02:43] VITALS: BP 133/72; PULSE 88
[2019-03-06] MEDS ORDERED: LIDOCAINE 5% TOPICAL PATCH TP ONE (03:09)
[2019-03-06] MEDS ORDERED: LIDOCAINE 5% TOPICAL PATCH ONE (03:13)
[2019-03-06] MEDS ORDERED: LIDOCAINE PATCH REMOVAL MC SCH (22:00)
== END 2019-03-06 03:22 | disposition home or self-care (01) ==
LOC: JER 16:48
PROC: 3E0233Z Introduction of Anti-inflammatory into Muscle, Percutaneous Approach (ICD-10-PCS; principal; 2019-03-05)
DX: R10.32 Left lower quadrant pain (principal); N83.209 Unspecified ovarian cyst, unspecified side; Z86.711 Personal history of pulmonary embolism; Z79.01 Long term (current) use of anticoagulants; E11.9 Type 2 diabetes mellitus without complications
CPT/HCPCS: 36415; 74176-TC; 76830-TC; 80053; 81003; 82962; 84703; 85025; 87086; 99283-25

== ENCOUNTER 2022-03-04 15:27 | Emergency (ER) | payer OTHER ==
[2022-03-04 15:46] VITALS: BP 122/75; PULSE 77; RESP 20; TEMP 98.2; BMI 30.9
== END 2022-03-04 16:00 | disposition left against medical advice (07) ==
LOC: JER 15:27
DX: M54.50 Low back pain, unspecified (principal); M54.2 Cervicalgia
CPT/HCPCS: 93005; 93010; 99281-25

== ENCOUNTER 2023-03-29 08:14 | Emergency (ER) | payer OTHER ==
[2023-03-29 08:21] VITALS: TEMP 97.5; BMI 33.9
[2023-03-29] MEDS ORDERED: KETOROLAC TROMETHAMINE 30 MG/1 ML VIAL IM ONE (09:09)
[2023-03-29] MEDS ORDERED: METHOCARBAMOL 500 MG TABLET PO ONE (09:10)
[2023-03-29] MEDS ORDERED: DEXAMETHASONE SOD PHOSPHATE 10 MG/1 ML VIAL IM ONE (09:10)
[2023-03-29] MEDS ORDERED: DEXAMETHASONE SOD PHOSPHATE 10 MG/1 ML VIAL ONE (09:12)
[2023-03-29] MEDS ORDERED: METHOCARBAMOL 500 MG TABLET ONE (09:12)
[2023-03-29] MEDS ORDERED: KETOROLAC TROMETHAMINE 60 MG/2 ML VIAL ONE (09:13)
[2023-03-29 11:58] LABS: BASO % 0.3 % (0-2.0); EOS % 1.9 % (0-4.5); HEMATOCRIT 39.5 % (32.4-45.2); HEMOGLOBIN 12.9 GM/dL (10.7-15.3); LYMPH % 20.3 % (8-40); MCH 27.6 pg (25.7-33.7); MCHC 32.7 g/dl (32.0-36.0); MEAN CELL VOLUME 84.5 fl (80-96); MEAN PLT VOLUME 9.1 fl (7.5-11.1); MONO % 4.9 % (3.8-10.2); NEUT % 72.6 % (42.8-82.8); PLATELET COUNT 207 10^3/uL (134-434); RBC 4.67 M/mm3 (3.60-5.2); RDW 13.5 % (11.6-15.6); WHITE BLOOD COUNT 6.2 K/mm3 (4.0-10.0)
[2023-03-29 12:21] LABS: POTASSIUM 4.5 mmol/L (3.5-5.1)
[2023-03-29 12:24] LABS: CALCIUM 9.4 mg/dL (8.5-10.1)
[2023-03-29 12:25] LABS: ALBUMIN 3.8 g/dl (3.4-5.0); BLOOD UREA NITROGEN 11.5 mg/dL (7-18)
[2023-03-29 12:28] LABS: CREATININE 0.8 mg/dL (0.55-1.3)
[2023-03-29 12:29] LABS: BILIRUBIN,TOTAL 0.4 mg/dL (0.2-1); TOT PROT 7.5 g/dl (6.4-8.2)
[2023-03-29 14:19] VITALS: BP 140/80; PULSE 93; RESP 18
== END 2023-03-29 14:21 | disposition short-term general hospital (02) ==
LOC: JERFT 08:14 → JER 08:14
PROC: 3E0233Z Introduction of Anti-inflammatory into Muscle, Percutaneous Approach (ICD-10-PCS; principal; 2023-03-29)
PROC: 3E023GC Introduction of Other Therapeutic Substance into Muscle, Percutaneous Approach (ICD-10-PCS; 2023-03-29)
DX: M79.652 Pain in left thigh (principal); M89.8X8 Other specified disorders of bone, other site
CPT/HCPCS: 36415; 73502-TC-LT-FY; 73552-TC-LT-FY; 73700-TC-RT; 80053; 85025; 99285-25; J1100

== ENCOUNTER 2024-06-03 15:15 | Emergency (ER) | payer OTHER ==
[2024-06-03 16:37] VITALS: BP 111/71; PULSE 92; RESP 20; TEMP 97.8; BMI 33.9
[2024-06-03 17:41] LABS: BASO % 0.1 % (0-2.0); EOS % 3.1 % (0-4.5); HEMATOCRIT 36.1 % (32.4-45.2); HEMOGLOBIN 11.9 GM/dL (10.7-15.3); LYMPH % 30.9 % (8-40); MCH 27.9 pg (25.7-33.7); MCHC 32.9 g/dl (32.0-36.0); MEAN CELL VOLUME 84.9 fl (80-96); MEAN PLT VOLUME 8.1 fl (7.5-11.1); MONO % 14.4 % (3.8-10.2); NEUT % 51.5 % (42.8-82.8); PLATELET COUNT 188 10^3/uL (134-434); RBC 4.25 M/mm3 (3.60-5.2); RDW 13.8 % (11.6-15.6); WHITE BLOOD COUNT 7.3 K/mm3 (4.0-10.0)
[2024-06-03 18:04] LABS: POTASSIUM 3.7 mmol/L (3.5-5.1)
[2024-06-03 18:06] LABS: CALCIUM 9.4 mg/dL (8.5-10.1)
[2024-06-03 18:07] LABS: ALBUMIN 3.6 g/dl (3.4-5.0); BLOOD UREA NITROGEN 9.6 mg/dL (7-18)
[2024-06-03 18:10] LABS: CREATININE 0.8 mg/dL (0.55-1.3)
[2024-06-03 18:11] LABS: BILIRUBIN,TOTAL 0.6 mg/dL (0.2-1); TOT PROT 6.8 g/dl (6.4-8.2)
== END 2024-06-03 23:06 | disposition home or self-care (01) ==
LOC: JER 15:15
DX: R11.2 Nausea with vomiting, unspecified (principal); R19.7 Diarrhea, unspecified; R10.13 Epigastric pain; R10.32 Left lower quadrant pain
CPT/HCPCS: 36415; 74177-TC; 80053; 83690; 84703; 85025; 99285-25; Q9967

== ENCOUNTER 2024-11-14 22:21 | Observation (INO) | payer OTHER ==
[2024-11-14] MEDS ORDERED: ACETAMINOPHEN 325 MG TABLET (FP) ONE (23:20)
[2024-11-14] MEDS ORDERED: FAMOTIDINE 20 MG/50 ML IVPB 20 MG/50 ML MG IVPB ONE (23:20)
[2024-11-14] MEDS: FAMOTIDINE 20 MG/50 ML IVPB 20 MG/50 ML MG IVPB ONE (23:38)
[2024-11-14] MEDS: ACETAMINOPHEN 325 MG TABLET (FP) PO ONE (23:38)
[2024-11-14 23:47] LABS: ABSOLUTE IMMATURE GRANULOCYTES 0.02 x10^3/uL (0.0-0.031); BASOPHILS # 0.03 x10^3/uL (0.01-0.08); EOSINOPHIL % 2.7 % (0.7-5.8); EOSINOPHILS # 0.18 x10^3/uL (0.04-0.36); HEMATOCRIT 38.8 % (34.1-44.9); HEMOGLOBIN 12.4 g/dL (11.2-15.7); MEAN CELL VOLUME 85.3 fl (79.4-94.8); MEAN PLT VOLUME 10.9 fl (9.4-12.3); MONOCYTE # 0.69 x10^3/uL (0.24-0.86); MONOCYTE % 10.4 % (4.7-12.5); PLATELET COUNT 222 x10^3/uL (182-369)
[2024-11-14 23:54] LABS: INR 1.16 (0.83-1.09); PROTHROMBIN TIME (PATIENT) 12.6 SEC (9.7-13.0)
[2024-11-14 23:57] LABS: ACTIVATED PTT 33.7 SECONDS (25.2-36.5)
[2024-11-15 00:10] LABS: ALBUMIN 3.7 g/dl (3.4-5.0); BLOOD UREA NITROGEN 12.1 mg/dL (7-18); CALCIUM 10.5 mg/dL (8.5-10.1); MAGNESIUM 1.8 mg/dL (1.8-2.4)
[2024-11-15 00:13] LABS: CREATININE 0.8 mg/dL (0.55-1.3)
[2024-11-15 00:14] LABS: BILIRUBIN,TOTAL 0.3 mg/dL (0.2-1); TOT PROT 7.5 g/dl (6.4-8.2)
[2024-11-15] MEDS ORDERED: MORPHINE SULFATE 2 MG/ML SYRINGE IVPUSH PRN (01:41)
[2024-11-15] MEDS: ATORVASTATIN CA 40 MG TABLET (FP) PO ONE (02:15)
[2024-11-15] MEDS: NITROGLYCERIN SUBLINGUAL 1/150 0.4 MG TAB SL PRN (04:10)
[2024-11-15] MEDS: ACETAMINOPHEN 325 MG TABLET (FP) PO ONE (04:49)
[2024-11-15 05:54] VITALS: BMI 32.8
[2024-11-15] MEDS ORDERED: HEPARIN NA (PORCINE) 5,000 UNITS/ML 1ML VIAL SQ SCH (06:00)
[2024-11-15] MEDS: INSULIN ASPART SLIDING SCALE (NOVOLOG) 1 VIAL SQ SCH ×2 (06:48→10:59)
[2024-11-15] MEDS: APIXABAN 2.5 MG TABLET PO SCH (09:52)
[2024-11-15] MEDS: ASPIRIN COATED 81 MG TABLET.EC PO SCH (09:52)
[2024-11-15] MEDS: SODIUM CHLORIDE 1,000 ML IV SCH (09:53)
[2024-11-15] MEDS: ACETAMINOPHEN 325 MG TABLET (FP) PO PRN (10:34)
[2024-11-15] MEDS: FAMOTIDINE 20 MG TABLET PO SCH (11:26)
[2024-11-15] MEDS: APIXABAN 5 MG TABLET PO SCH (21:22)
[2024-11-16 09:28] LABS: HEMATOCRIT 38.9 % (34.1-44.9); HEMOGLOBIN 12.5 g/dL (11.2-15.7); MCHC 32.1 g/dl (32.2-35.5); MEAN CELL VOLUME 84.7 fl (79.4-94.8); MEAN PLT VOLUME 12.4 fl (9.4-12.3); PLATELET COUNT 198 x10^3/uL (182-369); RDW 13.2 % (12.2-17.1)
[2024-11-16 09:29] LABS: ABSOLUTE IMMATURE GRANULOCYTES 0.01 x10^3/uL (0.0-0.031); BASOPHILS # 0.01 x10^3/uL (0.01-0.08); EOSINOPHIL % 3.5 % (0.7-5.8); EOSINOPHILS # 0.19 x10^3/uL (0.04-0.36); HEMATOCRIT 38.3 % (34.1-44.9); HEMOGLOBIN 12.4 g/dL (11.2-15.7); MCHC 32.4 g/dl (32.2-35.5); MEAN CELL VOLUME 84.5 fl (79.4-94.8); MEAN PLT VOLUME 12.3 fl (9.4-12.3); MONOCYTE # 0.58 x10^3/uL (0.24-0.86); MONOCYTE % 10.7 % (4.7-12.5); PLATELET COUNT 194 x10^3/uL (182-369); RDW 13.1 % (12.2-17.1)
[2024-11-16 09:58] LABS: ALBUMIN 3.7 g/dl (3.4-5.0); BLOOD UREA NITROGEN 9.4 mg/dL (7-18); CALCIUM 9.7 mg/dL (8.5-10.1)
[2024-11-16 09:59] LABS: MAGNESIUM 1.9 mg/dL (1.8-2.4)
[2024-11-16 10:02] LABS: BILIRUBIN,TOTAL 1.2 mg/dL (0.2-1); CREATININE 0.7 mg/dL (0.55-1.3); PHOSPHOROUS 2.8 mg/dL (2.5-4.9); TOT PROT 7.3 g/dl (6.4-8.2)
[2024-11-16 18:56] VITALS: RESP 18
[2024-11-16] MEDS: ATORVASTATIN CA 10 MG TABLET (FP) PO SCH (21:28)
[2024-11-17 08:14] LABS: HEMATOCRIT 39.6 % (34.1-44.9); HEMOGLOBIN 12.7 g/dL (11.2-15.7); MCHC 32.1 g/dl (32.2-35.5); MEAN CELL VOLUME 85.2 fl (79.4-94.8); MEAN PLT VOLUME 11.6 fl (9.4-12.3); PLATELET COUNT 209 x10^3/uL (182-369)
[2024-11-17 08:23] LABS: POTASSIUM 4.1 mmol/L (3.5-5.1)
[2024-11-17 08:25] LABS: CALCIUM 9.7 mg/dL (8.5-10.1)
[2024-11-17 08:26] LABS: ALBUMIN 3.4 g/dl (3.4-5.0); BLOOD UREA NITROGEN 13.6 mg/dL (7-18); MAGNESIUM 1.7 mg/dL (1.8-2.4)
[2024-11-17 08:29] LABS: CREATININE 0.8 mg/dL (0.55-1.3); PHOSPHOROUS 3.3 mg/dL (2.5-4.9)
[2024-11-17 08:30] LABS: BILIRUBIN,TOTAL 0.7 mg/dL (0.2-1)
[2024-11-17] MEDS: APIXABAN 2.5 MG TABLET PO SCH (10:19)
[2024-11-17 16:41] VITALS: BP 104/71; PULSE 86; TEMP 98.1
== END 2024-11-17 14:05 | disposition home or self-care (01) ==
LOC: JER 22:21 → JERBED 11-15 01:17 → J4S 11-15 03:23
PROVIDERS: ADMIT Hospitalist; ATTEND Internal Medicine
PROC: 3E033GC Introduction of Other Therapeutic Substance into Peripheral Vein, Percutaneous Approach (ICD-10-PCS; principal; 2024-11-15)
PROC: 3E013VG Introduction of Insulin into Subcutaneous Tissue, Percutaneous Approach (ICD-10-PCS; 2024-11-15)
PROC: 3E033GC Introduction of Other Therapeutic Substance into Peripheral Vein, Percutaneous Approach (ICD-10-PCS; 2024-11-15)
PROC: 3E0337Z Introduction of Electrolytic and Water Balance Substance into Peripheral Vein, Percutaneous Approach (ICD-10-PCS; 2024-11-15)
DX: R07.9 Chest pain, unspecified (principal); Z86.711 Personal history of pulmonary embolism; Z79.01 Long term (current) use of anticoagulants; Z86.718 Personal history of other venous thrombosis and embolism; D68.59 Other primary thrombophilia; N64.4 Mastodynia
CPT/HCPCS: 0241U-QW; 36415; 70450-TC; 71046-TC-FY; 71275-TC; 80053; 82607; 82747; 82962; 83036; 83690; 83735; 83880; 84100; 84484; 84703; 85014; 85025; 85027; 85379; 85610; 85730; 86850; 86900; 86901; 93005; 93010; 93306-TC; 93970-TC; 96361; 96365; 96372; 99285-25; G0378